=== PATIENT | male | born 1965 ===

== ENCOUNTER 2018-06-14 05:34 | Emergency (ER) | payer BC ==
[2018-06-14] MEDS ORDERED: Albuterol-Ipratrop 3 mg / 0.5 (3 ml) UD INH STA ×3 (06:06→06:25)
--- NOTE | 2018-06-14 06:11 | ED PDOC ---
HPI: SOB/CHF/COPD Time Seen by Provider: 06/14/18 05:52 Chief Complaint (Nursing): Shortness Of Breath Chief Complaint (Provider): Shortness Of Breath History Per: Patient History/Exam Limitations: no limitations Onset/Duration Of Symptoms: Hrs Associated Symptoms: denies: Chest Pain Additional Complaint(s): 53 years old male with chronic bronchitis every winter presents to ER for evaluation of acute worsening of shortness of breath. Patient reports this winter his bronchitis has been worse than it has ever been. He states he treated symptoms with steroids, ventolin and proair. Patient reports waking up tonight gasping breath which never happened before prompting him to come to the ED. He reports improvement since arrival. Patient denies chest pain, nausea, vomiting, leg swelling, calf pain, recent immobility, history of cancer or other lung disease, or known cardiac condition. PMD: None provided Past Medical History Reviewed: Historical Data, Nursing Documentation, Vital Signs Vital Signs: Last Vital Signs Temp 98.3 F 06/14/18 05:52 Pulse 86 06/14/18 05:52 Resp 20 06/14/18 05:52 BP 140/80 06/14/18 05:52 Pulse Ox 98 06/14/18 05:52 - Medical History PMH: Bronchitis - Surgical History Surgical History: No Surg Hx - Family History Family History: States: Unknown Family Hx - Allergies Allergies/Adverse Reactions: Allergies Allergy/AdvReac Type Severity Reaction Status Date / Time No Known Allergies Allergy Verified 06/14/18 05:58 Review of Systems ROS Statement: Except As Marked, All Systems Reviewed And Found Negative Cardiovascular: Negative for: Chest Pain Respiratory: Positive for: Shortness of Breath Gastrointestinal: Negative for: Nausea, Vomiting Musculoskeletal: Negative for: Leg Pain Physical Exam - Reviewed Nursing Documentation Reviewed: Yes Vital Signs Reviewed: Yes - Physical Exam Appears: Positive for: No Acute Distress Head Exam: Positive for: ATRAUMATIC, NORMOCEPHALIC Skin: Positive for: Normal Color, Warm, Dry Eye Exam: Positive for: Normal appearance, EOMI, PERRL ENT: Positive for: Normal ENT Inspection Neck: Positive for: Normal, Painless ROM, Supple Cardiovascular/Chest: Positive for: Regular Rate, Rhythm. Negative for: Murmur Respiratory: Positive for: Normal Breath Sounds, Other (Dry cough triggered by deep inspiration). Negative for: Respiratory Distress Gastrointestinal/Abdominal: Positive for: Normal Exam, Soft. Negative for: Tenderness Back: Positive for: Normal Inspection. Negative for: L CVA Tenderness, R CVA Tenderness Extremity: Positive for: Normal ROM. Negative for: Pedal Edema, Deformity Neurological/Psych: Positive for: Awake, Alert, Oriented (x3) - Laboratory Results Result Diagrams: 06/14/18 06:37 - ECG O2 Sat by Pulse Oximetry: 98 (RA) Pulse Ox Interpretation: Normal Medical Decision Making Medical Decision Making: Time: 602 MDM: workup for acute worsening of shortness of breath with chronic bronchitis --Patient requesting chest CT, explained may be done out patient --Labs --CXR --Duoneb --SOLU-Medrol --D-Dimer --Reassess patient 07 Patient signed out to Dr. Rangel, pending labs and CXR. Scribe Attestation: Documented by Mamie Ritter, acting as a scribe for Soco Mae MD. Provider Scribe Attestation: All medical record entries made by the Scribe were at my direction and p ersonally dictated by me. I have reviewed the chart and agree that the record accurately reflects my personal performance of the history, physical exam, medical decision making, and the department course for this patient. I have also personally directed, reviewed, and agree with the discharge instructions and disposition. Disposition - Clinical Impression Clinical Impression: Shortness of breath - Patient ED Disposition Is Patient to be Admitted: Transfer of Care - Disposition Disposition: Transfer of Care Disposition Time: 07:00 Condition: STABLE Forms: [facility] (Setswana)
[2018-06-14 06:48] LABS: BASO # 0.1 K/uL (0.0-0.2); BASO % 0.7 % (0.0-2.0); EOS # 0.2 K/uL (0.0-0.7); EOS % 1.6 % (0.0-4.0); HEMOGLOBIN 14.3 g/dL (12.0-18.0); MEAN CELL VOLUME 88.5 fl (80.0-94.0); MEAN CORPUSCULAR HEMOGLOBIN 29.4 pg (27.0-31.0); MEAN CORPUSCULAR HGB CONC 33.2 g/dL (33.0-37.0); MONO # 0.8 K/uL (0.0-0.8); MONO % 6.2 % (0.0-10.0); NEUT # 8.9 K/uL (1.8-7.0); NEUT % 68.5 % (50.0-75.0); RBC 4.87 Mil/uL (4.40-5.90); RED CELL DISTRIBUTION WIDTH 14.5 % (11.5-14.5); WHITE BLOOD COUNT 12.9 K/uL (4.8-10.8)
[2018-06-14] MEDS ORDERED: Albuterol-Ipratrop 3 mg / 0.5 (3 ml) UD ONE ×2 (06:52→07:08)
[2018-06-14 06:54] LABS: BLOOD UREA NITROGEN 21 mg/dl (9-20); CALCIUM 8.9 mg/dL (8.4-10.2); GFR NON-AFRICAN AMERICAN > 60
[2018-06-14 07:06] LABS: B-TYPE NATRIURETIC PEPTIDE 2700 pg/ml (0-900)
--- NOTE | 2018-06-14 07:06 | ED PDOC ---
- Laboratory Results Result Diagrams: 06/14/18 06:37 06/14/18 06:37 Lab Results: D-Dimer, Quantitative < 200 ng/mlDDU (0-230) 06/14/18 06:37 - ECG O2 Sat by Pulse Oximetry: 98 (RA) Medical Decision Making Medical Decision Making: Time: 0700 --Patient is endorsed to provider by Dr. Mae, pending lab and CXR results. Time: 734 Reeval SOB improved. Denies chest pain. Lungs, no rales, no resp distress. Pro- BNP elevated at 2700. No PMH CHF with no clinical or xray evidence of CHF. Will give 40 mg Lasix and reeval. Pt bdiuresed 700 ml after lasix. Feels better. Will dc home with outpt follow up in [facility] Scribe Attestation: Documented by Eliana Maharaj, acting as a scribe for Riky Rangel MD. Provider Scribe Attestation: All medical record entries made by the Scribe were at my direction and personally dictated by me. I have reviewed the chart and agree that the record accurately reflects my personal performance of the history, physical exam, medical decision making, and the department course for this patient. I have also personally directed, reviewed, and agree with the discharge instructions and disposition. Disposition Counseled Patient/Family Regarding: Studies Performed, Diagnosis, Need For Followup, Rx Given - Clinical Impression Clinical Impression: Shortness of breath, Bronchitis - POA Present On Arrival: None - Disposition Referrals: [facility] [Outside] Disposition: Routine/Home Disposition Time: 09:16 Condition: STABLE Prescriptions: Albuterol HFA [Ventolin HFA 90 mcg/actuation (8 g)] 2 puff IH Q4H #1 puff Methylprednisolone [Medrol Dose Pack (21 tabs)] 4 mg PO DAILY #21 tab Instructions: Chronic Bronchitis, Shortness of Breath (Dyspnea) (DC) Forms: [employer] (Kazakh)
[2018-06-14 07:42] VITALS: RESP 18
[2018-06-14 07:43] VITALS: TEMP 98
--- NOTE | 2018-06-14 09:40 | RAD ---
Date of service: 06/14/2018 HISTORY: cough COMPARISON: No prior. TECHNIQUE: Chest PA and lateral views FINDINGS: LUNGS: Suspect minimal bibasilar atelectasis and or scarring PLEURA: No significant pleural effusion identified. No pneumothorax apparent. CARDIOVASCULAR: No aortic atherosclerotic calcification present. Normal cardiac size. No pulmonary vascular congestion. OSSEOUS STRUCTURES: Minor chronic anterior wedge deformities of few mid thoracic segments VISUALIZED UPPER ABDOMEN: Normal. OTHER FINDINGS: None. IMPRESSION: Minimal bibasilar atelectasis and/or scarring
[2018-06-14 10:23] VITALS: BP 143/79; PULSE 73; O2SAT 96
== END 2018-06-14 10:24 | disposition home or self-care (01) ==
LOC: H.ER 05:34
DX: R06.02 Shortness of breath (principal); J40 Bronchitis, not specified as acute or chronic
CPT/HCPCS: 71046; 80048; 83880; 84484; 85025; 85378; 94640; 96374; 96375; 99284; J1940; J2930

== ENCOUNTER 2018-06-19 05:56 | Inpatient (IN) | payer BC ==
[2018-06-19 06:05] VITALS: BMI 34.8
[2018-06-19] MEDS ORDERED: Albuterol-Ipratrop 3 mg / 0.5 (3 ml) UD INH STA (06:23)
[2018-06-19] MEDS ORDERED: Albuterol-Ipratrop 3 mg / 0.5 (3 ml) UD ONE (06:29)
--- NOTE | 2018-06-19 06:29 | ED PDOC ---
HPI: SOB/CHF/COPD Time Seen by Provider: 06/19/18 06:05 Chief Complaint (Nursing): Shortness Of Breath Chief Complaint (Provider): Shortness Of Breath History Per: Patient History/Exam Limitations: no limitations Onset/Duration Of Symptoms: Days (x 5) Current Symptoms Are (Timing): Still Present Current Respiratory Medications: Albuterol (Ventolin inhaler), Other (Solum edrol) Associated Symptoms: denies: Chest Pain Additional Complaint(s): 53 year old male with a history of seasonal bronchitis presents to the ED for evaluation of shortness of breath and a dry cough for 5 days. Patient states his seasonal bronchitis generally resolved. However, on Sunday he developed severe shortness of breath, prompting him to visit the ED. During that visit, lab results revealed an elevated Pro-BNP. He was given a dose of IV Lasix and discharged home. Patient reports he then felt better until last night when symptoms returned. Denies chest pain, nausea, vomiting, fever and lower extremity swelling or edema. PMD: none provided Past Medical History Reviewed: Historical Data, Nursing Documentation, Vital Signs Vital Signs: Last Vital Signs Temp 98.0 F 06/19/18 06:04 Pulse 90 06/19/18 06:04 Resp 23 06/19/18 06:21 BP 123/85 06/19/18 06:04 Pulse Ox 97 06/19/18 06:21 - Medical History PMH: Bronchitis - Surgical History Surgical History: Cholecystectomy - Family History Family History: States: Unknown Family Hx - Social History Current smoker - smoking cessation education provided: No Alcohol: None Drugs: Denies - Home Medications Home Medications: Ambulatory Orders Medication Instructions Recorded Albuterol HFA [Ventolin HFA 90 2 puff IH Q4H #1 puff 06/14/18 mcg/actuation (8 g)] Methylprednisolone [Medrol Dose 4 mg PO DAILY #21 tab 06/14/18 Pack (21 tabs)] - Allergies Allergies/Adverse Reactions: Allergies Allergy/AdvReac Type Severity Reaction Status Date / Time No Known Allergies Allergy Verified 06/19/18 06:18 Review of Systems ROS Statement: Except As Marked, All Systems Reviewed And Found Negative Constitutional: Negative for: Fever, Chills Cardiovascular: Negative for: Chest Pain Respiratory: Positive for: Cough, Shortness of Breath Gastrointestinal: Negative for: Nausea, Vomiting Musculoskeletal: Negative for: Leg Pain Physical Exam - Reviewed Nursing Documentation Reviewed: Yes Vital Signs Reviewed: Yes - Physical Exam Appears: Positive for: No Acute Distress Head Exam: Positive for: ATRAUMATIC, NORMAL INSPECTION, NORMOCEPHALIC Skin: Positive for: Normal Color, Warm, Dry Eye Exam: Positive for: EOMI, Normal appearance, PERRL Neck: Positive for: Normal, Painless ROM, Supple Cardiovascular/Chest: Positive for: Regular Rate, Rhythm. Negative for: Murmur Respiratory: Positive for: Decreased Breath Sounds (Decreased air entry). Negative for: Respiratory Distress Gastrointestinal/Abdominal: Positive for: Normal Exam, Soft. Negative for: Tenderness Back: Positive for: Normal Inspection. Negative for: L CVA Tenderness, R CVA Tenderness Extremity: Positive for: Normal ROM (x 4). Negative for: Deformity, Swelling Neurological/Psych: Positive for: Awake, Alert, Normal Tone, Oriented (x 3). Negative for: Motor/Sensory Deficits - ECG O2 Sat by Pulse Oximetry: 97 (RA) Pulse Ox Interpretation: Normal Medical Decision Making Medical Decision Makin:22 Impression: persistent dyspnea Initial Plan: --CT Angio Chest --EKG --BNP --CMP --CBC --PTT --PT --Duoneb 9 ml INH --Peak flow pre/post --Solu-medrol 125 mg IVP 07:00 Patient will be endorsed to Dr. Ortiz pending full ER workup, re-evaluation and final disposition. Patient is with stable vitals and in no distress at time of physical handoff. Scribe Attestation: Documented by Lesley Swain, acting as a scribe Turner Salgado MD Provider Scribe Attestation: All medical record entries made by the Scribe were at my direction and personally dictated by me. I have reviewed the chart and agree that the record accurately reflects my personal performance of the history, physical exam, medical decision making, and the department course for this patient. I have also personally directed, reviewed, and agree with the discharge instructions and disposition Disposition - Clinical Impression Clinical Impression: Shortness of breath - Patient ED Disposition Is Patient to be Admitted: Transfer of Care - Disposition Disposition: Transfer of Care Disposition Time: 07:00 Condition: FAIR Forms: [employer] (Honduran) Patient Signed Over To: Bette Ortiz
[2018-06-19 07:01] LABS: BASO # 0.1 K/uL (0.0-0.2); BASO % 0.7 % (0.0-2.0); EOS # 0.1 K/uL (0.0-0.7); EOS % 0.5 % (0.0-4.0); HEMOGLOBIN 14.1 g/dL (12.0-18.0); LYMPH # 1.8 K/uL (1.0-4.3); MEAN CELL VOLUME 87.5 fl (80.0-94.0); MEAN CORPUSCULAR HEMOGLOBIN 29.4 pg (27.0-31.0); MEAN CORPUSCULAR HGB CONC 33.6 g/dL (33.0-37.0); MEAN PLATELET VOLUME 8.1 fl (7.2-11.7); MONO # 0.6 K/uL (0.0-0.8); MONO % 4.5 % (0.0-10.0); NEUT # 10.3 K/uL (1.8-7.0); NEUT % 80.3 % (50.0-75.0); RBC 4.79 Mil/uL (4.40-5.90); RED CELL DISTRIBUTION WIDTH 14.6 % (11.5-14.5); WHITE BLOOD COUNT 12.8 K/uL (4.8-10.8)
[2018-06-19 07:05] LABS: INR 1.1; PROTHROMBIN TIME 12.4 Seconds (9.8-13.1)
[2018-06-19 07:08] LABS: PARTIAL THROMBOPLASTIN TIME 33.1 Seconds (25.6-37.1)
--- NOTE | 2018-06-19 07:11 | ED PDOC ---
- Laboratory Results Result Diagrams: 06/19/18 06:38 06/19/18 06:38 Lab Results: PT 12.4 Seconds (9.8-13.1) 06/19/18 06:38 INR 1.1 06/19/18 06:38 APTT 33.1 Seconds (25.6-37.1) 06/19/18 06:38 - ECG O2 Sat by Pulse Oximetry: 97 (RA) Pulse Ox Interpretation: Normal Medical Decision Making Medical Decision Making: Time: 7:00 Patient with a history of seasonal bronchitis was signed out to me by Dr. Salgado pending Chest CT, labs, and final ER disposition. Upon bedside evaluation patient reports mild improvement in symptoms s/p treatment. Patient has a normal physical exam upon evaluation and is speaking in full sentences with clear lungs. He is stable in the ED at this time. 11:[address] Jimenez in regards to admission of patient to Telemetry for new onset CHF. Scribe Attestation: Documented by Bebe Mcdaniel, acting as a scribe for Bette Ortiz MD. Provider Scribe Attestation: All medical record entries made by the Scribe were at my direction and personally dictated by me. I have reviewed the chart and agree that the record accurately reflects my personal performance of the history, physical exam, medical decision making, and the department course for this patient. I have also personally directed, reviewed, and agree with the discharge instructions and disposition. Disposition - Clinical Impression Clinical Impression: New onset of congestive heart failure - POA Present On Arrival: None - Disposition Disposition: Admitted as In-Patient Disposition Time: 11:35 Condition: STABLE
[2018-06-19 07:14] LABS: ALB/GLOB RATIO 1.4 (1.0-2.1); ALBUMIN 4.2 g/dL (3.5-5.0); ALT/SGPT 73 U/L (21-72); AST/SGOT 49 U/L (17-59); BLOOD UREA NITROGEN 17 mg/dl (9-20); CALCIUM 8.5 mg/dL (8.4-10.2); GFR NON-AFRICAN AMERICAN > 60
[2018-06-19 07:23] LABS: B-TYPE NATRIURETIC PEPTIDE 3030 pg/ml (0-900)
[2018-06-19] MEDS ORDERED: Iodixanol 320 MG/ML 100 ML BOTTLE IV ONE (07:49)
[2018-06-19] MEDS ORDERED: Sodium Chloride 0.9% 50 ML IV ONE (07:49)
--- NOTE | 2018-06-19 08:58 | CT ---
Date of service: 06/19/2018 PROCEDURE: CT Chest with contrast (Pulmonary Angiogram) HISTORY: chest pain r/o PE COMPARISON: None available. TECHNIQUE: Axial computed tomography images were obtained of the chest in the pulmonary arterial phase of enhancement. Coronal and sagittal reformatted images were created and reviewed. Intravenous contrast dose: 99 mL of Visipaque 320 Radiation dose: Total exam DLP = 0.0 mGy-cm. This CT exam was performed using one or more of the following dose reduction techniques: Automated exposure control, adjustment of the mA and/or kV according to patient size, and/or use of iterative reconstruction technique. FINDINGS: PULMONARY ARTERIES: Unremarkable. No pulmonary embolism. AORTA: No acute findings. No thoracic aortic aneurysm. No aortic atherosclerotic calcification or mural plaque present. LUNGS: At the left lung base there is a macro lobulated homogeneous hypodense area slightly less dense than the ipsilateral left thoracic muscle bundles. This appears intimate with the left fissure here Hounsfield units are quite variable in different parts albeit homogeneous appearing. Hounsfield units are negative to 50. Possibly of some fissural complex fluid or other soft tissue fissural perifissural related pathology here is a consideration.. PLEURAL SPACES: No pneumothorax. Left lung base fissural and or perifissural potential related pathology here. HEART: Left atrium appears larger than typically seen compared to the right. Possible mild concomitant cardiomegaly.. No significant pericardial effusion. LYMPH NODES: No lymphadenopathy. BONES, CHEST WALL: Unremarkable. No fracture or destructive lesion OTHER FINDINGS: Unremarkable. IMPRESSION: No pulmonary embolus. Left atrium appears larger than typically seen compared to the right atrium. Consider echocardiography. Mild cardiomegaly no pericardial effusion. Left fissural/perifissural lobulated homogeneous density of variable Hounsfield units complex fluid and/or soft tissue contents are believed most likely. Follow-up recommended.
[2018-06-19 11:32] LABS: URINE BILIRUBIN NEGATIVE (NEGATIVE); URINE BLOOD NEGATIVE (NEGATIVE); URINE CLARITY CLEAR (Clear); URINE COLOR COLORLESS (YELLOW); URINE GLUCOSE (UA) NEG (NEGATIVE); URINE LEUKOCYTE ESTERASE NEG Leu/uL (Negative); URINE PROTEIN NEGATIVE (NEGATIVE); URINE UROBILINOGEN 0.2-1.0 mg/dL (0.2-1.0)
--- NOTE | 2018-06-19 14:26 | RAD ---
Date of service: 06/19/2018 PROCEDURE: CHEST RADIOGRAPH, 1 VIEW HISTORY: CHf COMPARISON: 06/14/2018 FINDINGS: LUNGS: Lung volumes probably lower limits of normal on this apical lordotic projection. No consolidation appreciated. PLEURA: No pneumothorax or pleural fluid seen. CARDIOVASCULAR: No aortic atherosclerotic calcification present. Minimal cardiomegaly suspect. Mild pulmonary venous congestion OSSEOUS STRUCTURES: No significant abnormalities. VISUALIZED UPPER ABDOMEN: Normal. OTHER FINDINGS: None. IMPRESSION: Minimal cardiomegaly and mild pulmonary venous congestion. Pulmonary venous congestion appears increased since prior exam
--- NOTE | 2018-06-19 19:44 | CARD ---
APPROVED REPORT Date of service: 06/19/2018 EKG Measurement Heart [id number] <Conclusion> Sinus rhythm with frequent and consecutive premature ventricular complexes Left ventricular hypertrophy with repolarization abnormality Abnormal ECG
--- NOTE | 2018-06-20 01:46 | HP ---
HISTORY OF PRESENT ILLNESS: This is a 53-year-old white male with a history of hypertension, presented to the emergency room with symptoms of shortness of breath and cough that woke him up for the second time during this week as he was sleeping. The patient presented to the emergency room three days prior to this admission, and he was treated and discharged home. The patient presented for the second time during this week with similar presentation. The patient was worked up in the emergency room and he was found to have elevated ProBNP to 3030. The patient was also found to have some leukocytosis of 12.8, but he was taking Medrol Dosepak at home. REVIEW OF SYSTEMS: The patient denied to have any chest pain, but he said that he had tightness in the chest as he woke up, denied having any fever. The patient denied smoking or any significant family history for ischemic heart disease. Other review of systems is negative. ALLERGIES: NO KNOWN ALLERGY. MEDICATIONS: Blood pressure medication that he cannot recall its name. PAST MEDICAL HISTORY: As above. SOCIAL HISTORY: No history of smoking, EtOH, or substance abuse. FAMILY HISTORY: Noncontributory. PHYSICAL EXAMINATION: GENERAL: The patient is in bed now, not in any cardiopulmonary distress after he was given Lasix in the emergency room. VITAL SIGNS: Blood pressure 132/78, temperature 98.4, respiratory rate 18, and pulse 87. HEENT: Pupils are equal and reactive to light. Normal-appearing mucosa of the conjunctivae, oropharynx and nasal membrane mucosa. NECK: Supple. No JVD. No carotid bruit. No lymph node. No thyromegaly. CHEST AND LUNGS: Bilateral symmetrical expansion. Good air exchange. No rales. No rhonchi. CARDIOVASCULAR SYSTEM: PMI not localized. S1, S2, no additional sounds. ABDOMEN: Normoactive bowel sounds. No tenderness. No organomegaly. No masses. EXTREMITIES: No cyanosis. No clubbing. No edema. CENTRAL NERVOUS SYSTEM: Alert, awake, oriented x3. No neurological deficit could be appreciated. DIAGNOSTIC DATA: CAT scan of the chest showed that left atrium appears larger than typically seen compared to the right atrium. ASSESSMENT: 1. New-onset congestive heart failure. 2. Hypertension. PLAN: Continue diuretics. Cardiology consult. Echocardiogram. Cardiac enzymes every 8 hours x3. Follow Cardiology recommendations. [facility] MD [facility] # [id number]
[2018-06-20 05:11] VITALS: RESP 18
[2018-06-20 09:14] VITALS: TEMP 97.5; O2SAT 95
--- NOTE | 2018-06-20 09:20 | CON ---
DATE OF CONSULTATION: 06/19/2018 REASON FOR CONSULTATION: Shortness of breath. HISTORY OF PRESENT ILLNESS: The patient is a 53-year-old male who has no known prior cardiac history. He has history of seasonal bronchitis usually in wintertime, for which he takes an inhaler and he receives a short steroid course as well as [id number]. The patient used to be followed by a primary physician, Dr. Garcia, that he has not seen for a while. The patient presents because of worsening of his shortness of breath, productive cough as well as leg swelling. The patient denies any fever or chills. The patient was evaluated recently 5 days ago in the emergency room of [facility] for shortness of breath and underwent chest x-ray, which was reported as minimal bibasilar atelectasis and/or scarring. SOCIAL HISTORY: Nonsmoker. The patient is currently unemployed, but he used to work in the past with a [employer]. MEDICATIONS: The patient is on aspirin 81 mg once daily, Lasix 20 mg intravenously daily. He did receive albuterol inhaler, Solu-Medrol, and intravenous Lasix in the emergency room. REVIEW OF SYSTEMS: No fever or chills. No dizziness or syncope. No retrosternal chest pain. PHYSICAL EXAMINATION: GENERAL: The patient is a middle-aged male who does not appear to be in acute distress. VITAL SIGNS: Blood pressure 124/66, heart rate 60, temperature 98, and respirations 20. HEENT: Head normocephalic. CHEST: Diminished breath sounds over the bases. HEART: S1 and S2 regular. ABDOMEN: Soft. EXTREMITIES: 1+ pitting edema. LABORATORY DATA: Today's hemoglobin and hematocrit are 14.1 and 41.9, white count 12.8, platelet count 367,000. SMA-7: Sodium 137, potassium 3.9, chloride 107, CO2 of 21, glucose 129, BUN 17, and creatinine 0.7. ProBNP is 3030. Troponin first set was negative. PT, INR, and PTT are within normal limits. A portable chest x-ray was performed on the telemetry unit, which revealed minimal cardiomegaly and mild vascular congestion. Pulmonary venous congestion appears increased compared to the previous exam, which was [address] angio with PE protocol, no pulmonary embolus, left atrium appears larger than typically seen compared to the right atrium. Consider echocardiographic study and mild cardiomegaly. No pericardial effusion. Left fissure/ homogeneous density of variable Hounsfield unit complex. Fluid and/or soft tissue contents are believed most likely. EKG revealed sinus rhythm with frequent PVCs, LVH with repolarization changes; however, lateral ischemia cannot be completely excluded. ASSESSMENT: 1. Consider new onset congestive heart failure. 2. History of seasonal bronchitis. 3. Hypertension. 4. Rule out right-sided heart failure secondary to pulmonary hypertension caused by chronic heart disease. RECOMMENDATIONS: Continue aspirin 81 mg once a day, Lasix 20 mg intravenously once a day. I did request an echocardiographic study to be performed today. Jesus Manuel Nair MD
[2018-06-20 14:06] VITALS: BP 119/82; PULSE 84
--- NOTE | 2018-06-20 18:26 | PN ---
DATE: 06/20/2018 SUBJECTIVE: The patient's shortness of breath has improved. He denies any chest pain. Cough also has improved. PHYSICAL EXAMINATION VITAL SIGNS: Blood pressure 106/76, heart rate 82, temperature 97.5, and respirations 18. HEENT: Normocephalic. CHEST: Bibasilar rhonchi. HEART: S1 and S2, regular. EXTREMITIES: Trace leg edema. LABORATORY DATA: I did review the echocardiographic study, which revealed [id number] depressed ejection fraction with septal hypokinesis. The left atrium was significantly dilated and the left ventricle was borderline dilated. ASSESSMENT: 1. Consider ischemic cardiomyopathy. 2. History of chronic bronchitis. 3. Systemic hypertension. RECOMMENDATIONS: Continue aspirin 81 mg once a day and Lasix 20 mg intravenously once a day. I will start Coreg 3.125 mg once a day, Vasotec 2.5 mg once a day, and Aldactone 25 mg once a day. Cardiac catheterization was strongly recommended; however, the patient requested to delay it for next week, after he celebrates his son's birthday and specifically after Sunday when his son leaves. The patient also requested to have his cardiac catheterization performed by student development dean from the . The issue will be discussed with Dr. Jimenez to assign another student development dean who uses ideal approach for cardiac catheterization. Jesus Manuel Nair MD
--- NOTE | 2018-06-20 20:03 | CARD ---
APPROVED REPORT Date of service: 06/20/2018 EXAM: Two-dimensional and M-mode echocardiogram with Doppler and color Doppler. Other Information Quality : GoodRhythm : PVC's INDICATION Congestive Heart Failure 2D DIMENSIONS IVSd1.29 (0.7-1.1cm)LVDd5.87 (3.9-5.9cm) LVOT Diameter2.33 (1.8-2.4cm)PWd1.09 (0.7-1.1cm) IVSs1.11 (0.8-1.2cm)LVDs5.89 (2.5-4.0cm) FS (%) 0.3 %PWs0.99 (0.8-1.2cm) M-Mode DIMENSIONS Left Atrium (MM)6.76 (2.5-4.0cm)IVSd1.04 (0.7-1.1cm) Aortic Root3.13 (2.2-3.7cm)LVDd7.95 (4.0-5.6cm) Aortic Cusp Exc.2.32 (1.5-2.0cm)PWd1.04 (0.7-1.1cm) IVSs0.89 cmFS (%) 13 % LVDs6.91 (2.0-3.8cm)PWs1.27 cm Aortic Valve AoV Peak Ftyrunfe952.4cm/sAoV VTI22.2cmAO Peak GR.7mmHg LVOT Peak Fjagvpuz06.6cm/sLVOT VTI14.75cmAO Mean GR.5mmHg [place] (VMAX)1.28cj8ZSB (VTI)1.19cm2 Mitral Valve E/A ratio0.0 TDI E/Lateral E'0.0E/Medial E'0.0 LEFT VENTRICLE The Left Ventricle is moderately dilated. There is normal left ventricular wall thickness. The systolic function is severely impaired. The estimated ejection fraction is 25-30% There is severe global hypokinesis. The left ventricular diastolic function cannot be assessed due to underlying rhythm. No left ventricle thrombus noted on this study. There is no ventricular septal defect visualized. There is no left ventricular aneurysm. There is no mass noted in the left ventricle. RIGHT VENTRICLE The right ventricle is normal size. There is normal right ventricular wall thickness. The right ventricular systolic function is normal. ATRIA The left atrium is severely dilated. The right atrium size is normal. The interatrial septum is intact with no evidence for an atrial septal defect. AORTIC VALVE The aortic valve is normal in structure. No aortic regurgitation is present. There is no aortic valvular stenosis. There is no aortic valvular vegetation. MITRAL VALVE The mitral valve is normal in structure. There is no evidence of mitral valve prolapse. There is no mitral valve stenosis. There is moderate mitral valve regurgitation noted. TRICUSPID VALVE The tricuspid valve is normal in structure. There is mild tricuspid valve regurgitation noted. There is no tricuspid valve prolapse or vegetation. There is no tricuspid valve stenosis. PULMONIC VALVE The pulmonary valve is normal in structure. There is no pulmonic valvular regurgitation. There is no pulmonic valvular stenosis. GREAT VESSELS The aortic root is normal in size. The ascending aorta is normal in size. The pulmonary artery is normal. The IVC is normal in size and collapses >50% with inspiration. PERICARDIAL EFFUSION There is no pericardial effusion. There is no pleural effusion. <Conclusion> The Left Ventricle is moderately dilated. The systolic function is severely impaired. The estimated ejection fraction is 25-30%. There is severe global hypokinesis. The left ventricular diastolic function cannot be assessed due to underlying rhythm. The left atrium is severely dilated. There is moderate mitral valve regurgitation noted. There is mild tricuspid valve regurgitation noted.
--- NOTE | 2018-06-22 11:41 | PQF ---
PROVIDER RESPONSE TEXT: Acute systolic HF , likely ischemic in origin. REVIEWER QUERY TEXT: CHF Acuity and Type Physician?s Documentation Request This Form is Not a Permanent Document in the Medical Record Pt Name: FLETCHER GAFFNEY MR #: [id number] Payor: [facility] Unit/Bed: [id number].TEL-H417-1 Adm Date: 06/19/2018 11:35:00 AM Reviewer: Mercedes Gee Ext. Query Date: 06/21/2018 2:10:42 PM CHF Acuity and Type [id number] By submitting this query, we are merely seeking further clarification of documentation to accurately reflect all conditions that you are monitoring, evaluating, treating or that extend the hospitalizati on or utilize additional resources of care. Please utilize your independent clinical judgment when ad dressing the question(s) below. Dear Doctor Ezekiel Jimenez, The patient?s Clinical Indicators include: DOCUMENTATION OF NEW ONSET OF CHF. PLEASE CLARIFY THE TYPE OF CHF IF KNOWN. Congestive Heart Failure is documented in the Medical Record. Please document the type and acuity (in cludes probable or suspected) Such as: Type: -- Systolic -- Diastolic -- Combined -- Other, please specify Acuity: -- Acute -- Chronic -- Acute on chronic -- Other, please specify Also please document the underlying cause of the CHF (includes probable or suspected) PLEASE DOCUMENT ANY ADDITIONAL DIAGNOSES AND/OR SPECIFICITY IN THE PROGRESS NOTES AND/OR DISCHARGE CUI MMARY. Clinically unable to determine/unknown Disagree with the above request Need to discuss Query created by: Mercedes Gee on 06/21/2018 2:10 PM Electronically signed by: Ezekiel Jimenez MD 06/22/2018 11:38 AM
== END 2018-06-20 17:25 | disposition home or self-care (01) | DRG 291 ==
LOC: H.ER 05:56 → H.ERHOLD 11:35 → H.TEL 13:14
PROVIDERS: ADMIT Internal Medicine; ATTEND Internal Medicine
DX: I11.0 Hypertensive heart disease with heart failure (principal); I50.21 Acute systolic (congestive) heart failure; D72.829 Elevated white blood cell count, unspecified; Z53.29 Procedure and treatment not carried out because of patient's decision for other reasons; Z79.82 Long term (current) use of aspirin

== ENCOUNTER 2018-07-03 01:24 | Inpatient (IN) | payer BC ==
[2018-07-03] MEDS ORDERED: Albuterol-Ipratrop 3 mg / 0.5 (3 ml) UD ONE (03:33)
[2018-07-03 03:58] LABS: BASO # 0.1 K/uL (0.0-0.2); EOS # 0.3 K/uL (0.0-0.7); EOS % 3.2 % (0.0-4.0); HEMOGLOBIN 12.5 g/dL (12.0-18.0); LYMPH # 2.3 K/uL (1.0-4.3); LYMPH % 23.3 % (20.0-40.0); MEAN CELL VOLUME 86.8 fl (80.0-94.0); MEAN CORPUSCULAR HEMOGLOBIN 29.6 pg (27.0-31.0); MEAN CORPUSCULAR HGB CONC 34.1 g/dL (33.0-37.0); MEAN PLATELET VOLUME 8.1 fl (7.2-11.7); MONO # 0.6 K/uL (0.0-0.8); MONO % 6.4 % (0.0-10.0); NEUT # 6.5 K/uL (1.8-7.0); NEUT % 66.1 % (50.0-75.0); NRBC % 0.1 % (0.0-0.0); RBC 4.24 Mil/uL (4.40-5.90); RED CELL DISTRIBUTION WIDTH 14.2 % (11.5-14.5); WHITE BLOOD COUNT 9.8 K/uL (4.8-10.8)
[2018-07-03 04:18] LABS: B-TYPE NATRIURETIC PEPTIDE 4260 pg/ml (0-900)
[2018-07-03 04:22] LABS: ALB/GLOB RATIO 1.3 (1.0-2.1); ALT/SGPT 47 U/L (21-72); AST/SGOT 39 U/L (17-59); BLOOD UREA NITROGEN 13 mg/dl (9-20); CALCIUM 8.4 mg/dL (8.4-10.2); GFR NON-AFRICAN AMERICAN > 60
[2018-07-03 05:24] VITALS: BMI 34.9
--- NOTE | 2018-07-03 05:55 | ED PDOC ---
HPI: CCC, URI, Sore Throat Time Seen by Provider: 07/03/18 03:35 Chief Complaint (Provider): Cough/URI History Per: Patient History/Exam Limitations: no limitations Onset/Duration Of Symptoms: Days Current Symptoms Are (Timing): Still Present Additional Complaint(s): 53 y/o male with recently diagnosed CHF and COPD presents to the ED for evaluation of a cough. Previous records reviewed, patient has had two ER visits and one admission over the last two weeks. At this time, patient is requesting to see a claims investigator for evaluation of the persistent cough. Patient believes he was discharged prematurely and was not seen by a claims investigator, only a cloth carrier. Patient denies fever, nausea and vomiting. Patient notes of using his Brio inhaler with mild relief. He presently states his cough has worsened and does describe PND and orthopnea. PMD: no provider Past Medical History Reviewed: Historical Data, Nursing Documentation, Vital Signs - Medical History PMH: Bronchitis Denies: HIV - Surgical History Surgical History: Cholecystectomy - Family History Family History: States: Unknown Family Hx - Home Medications Home Medications: Ambulatory Orders Medication Instructions Recorded Aspirin [Ecotrin] 81 mg PO DAILY #30 tabec 06/20/18 Carvedilol [Coreg] 3.125 mg PO Q12 #60 tab 06/20/18 Furosemide [Lasix] 20 mg PO DAILY #30 tablet 06/20/18 Lisinopril [Zestril] 5 mg PO DAILY #30 tab 06/20/18 Albuterol Sulfate [Ventolin Hfa] 1 puff IH DAILY 07/03/18 Fluticasone/Vilanterol [Breo 1 each IH DAILY 07/03/18 Ellipta 100-25 Mcg INH] - Allergies Allergies/Adverse Reactions: Allergies Allergy/AdvReac Type Severity Reaction Status Date / Time No Known Allergies Allergy Verified 06/19/18 06:18 Review of Systems ROS Statement: Except As Marked, All Systems Reviewed And Found Negative Respiratory: Positive for: Cough Physical Exam - Reviewed Nursing Documentation Reviewed: Yes Vital Signs Reviewed: Yes - Physical Exam Appears: Positive for: No Acute Distress Head Exam: Positive for: ATRAUMATIC, NORMOCEPHALIC Skin: Positive for: Normal Color, Warm, Dry Eye Exam: Positive for: Normal appearance, EOMI, PERRL ENT: Positive for: Normal ENT Inspection Neck: Positive for: Normal, Painless ROM, Supple Cardiovascular/Chest: Positive for: Regular Rate, Rhythm. Negative for: Murmur Respiratory: Positive for: Normal Breath Sounds, Other (trace rales at bases B/L). Negative for: Respiratory Distress Gastrointestinal/Abdominal: Positive for: Normal Exam, Soft. Negative for: Tenderness Back: Positive for: Normal Inspection. Negative for: L CVA Tenderness, R CVA Tenderness, Vertebral Tenderness Extremity: Positive for: Normal ROM. Negative for: Pedal Edema, Deformity Neurological/Psych: Positive for: Awake, Alert, Oriented (x3). Negative for: Motor/Sensory Deficits - Laboratory Results Result Diagrams: 07/03/18 03:20 07/03/18 03:20 Lab Results: Troponin I 0.0520 ng/mL (0.00-0.120) 07/03/18 03:20 NT-Pro-B Natriuret Pep 4260 pg/ml (0-900) H 07/03/18 03:20 Total Bilirubin 0.7 mg/dl (0.2-1.3) 07/03/18 03:20 AST 39 U/L (17-59) 07/03/18 03:20 ALT 47 U/L (21-72) 07/03/18 03:20 Alkaline Phosphatase 58 U/L (38-126) 07/03/18 03:20 Total Protein 7.0 G/DL (6.3-8.2) 07/03/18 03:20 Albumin 4.0 g/dL (3.5-5.0) 07/03/18 03:20 Globulin 3.0 gm/dL (2.2-3.9) 07/03/18 03:20 Albumin/Globulin Ratio 1.3 (1.0-2.1) 07/03/18 03:20 - Critical Care Total Time (In Min): 30 Medical Decision Making Medical Decision Making: Time: 353 Impression: 53 y/o male presenting with a cough Plan: -- B-Type Natiruretic Peptide -- CMP -- Troponin I -- CBC with Differentials Time: 523 Plan: -- CXR Portable Time: 606 Plan: -- Furosemide 40 mg IV -- Nitro-Bid 2% Oint 1 ea TOP Time: 613 -- Labs reviewed and is significant for markedly elevated Pro BNP. Provider suspects patient may be noncompliant with Lasix although he says that he does take medications as prescribed. Patient will be placed on observation status for CHF as discussed with Dr. Jimenez. Scribe Attestation: Documented by Nish Anand, acting as a scribe for David Salgado MD. Provider Scribe Attestation: All medical record entries made by the Scribe were at my direction and personally dictated by me. I have reviewed the chart and agree that the record accurately reflects my personal performance of the history, physical exam, medical decision making, and the department course for this patient. I have also personally directed, reviewed, and agree with the discharge instructions and disposition. Disposition - Clinical Impression Clinical Impression: CHF (congestive heart failure) - Patient ED Disposition Is Patient to be Admitted: Yes - Disposition Disposition Time: 06:17 Condition: FAIR - Pt Status Changed To: Hospital Disposition Of: Observation
[2018-07-03] MEDS ORDERED: Nitroglycerin 2% Ointment Foilpak UD TOP STA (06:07)
[2018-07-03] MEDS ORDERED: Nitroglycerin 2% Ointment Foilpak UD TOP ONE (06:28)
--- NOTE | 2018-07-03 08:12 | RAD ---
Date of service: 07/03/2018 HISTORY: chest pain COMPARISON: 05/19/2018 TECHNIQUE: 1 view obtained. FINDINGS: LUNGS: Interval trace discoid atelectasis PLEURA: Interval small left pleural effusion with or without left interval left inferolateral mild pleural thickening.. No pneumothorax appreciated. CARDIOVASCULAR: There is presence of aortic atherosclerotic calcification on x-ray. Cardiomegaly Mild pulmonary venous congestion grossly similar OSSEOUS STRUCTURES: Thoraco lumbar spondylosis. VISUALIZED UPPER ABDOMEN: Normal. OTHER FINDINGS: None. IMPRESSION: Interval left basal discoid atelectasis. Interval small left pleural effusion with possible mild interval left inferolateral pleural thickening/reaction. Mild cardiomegaly and mild venous congestion-similar
--- NOTE | 2018-07-03 15:02 | CP.PCM.CON ---
History of Present Illness - History of Present Illness History of Present Illness: Consultation for evaluation of chest pain / SOB / recurrent CHF exacerbation HPI: 53-year-old male with past medical history nonsignificant who presented with complaint of recurrent heart failure exacerbation patient apparently was here on June 19 at which time he had a CHF exacerbation echocardiogram done showed ejection fraction was 25 to 30% with apical hypokinesis he was optimized on medications subsequently discharged home he continued to have worsening chest pain shortness of breath and was readmitted with classic CHF exacerbation bilateral pulmonary congestion was also having ongoing episode of chest pain and therefore we will consider for further evaluation of etiology of his new onset Review of Systems - Review of Systems Systems not reviewed;Unavailable: Acuity of Condition - Constitutional Constitutional: As Per HPI - EENT Eyes: As Per HPI Ears: As Per HPI - Cardiovascular Cardiovascular: As Per HPI - Respiratory Respiratory: As Per HPI - Gastrointestinal Gastrointestinal: As Per HPI - Genitourinary Genitourinary: As Per HPI - Reproductive: Male Reproductive:Male: As Per HPI - Musculoskeletal Musculoskeletal: As Per HPI - Integumentary Integumentary: As Per HPI - Neurological Neurological: As Per HPI - Psychiatric Psychiatric: As Per HPI - Endocrine Endocrine: As Per HPI - Hematologic/Lymphatic Hematologic: As Per HPI Past Patient History - Past Medical History & Family History Past Medical History?: Yes - Past Social History Smoking Status: Former Smoker - PULMONARY Hx Bronchitis: Yes - HEMATOLOGICAL/ONCOLOGICAL Hx Human Immunodeficiency Virus (HIV): No - MUSCULOSKELETAL/RHEUMATOLOGICAL Hx Falls: No - PSYCHIATRIC Hx Substance Use: No - SURGICAL HISTORY Hx Cholecystectomy: Yes - ANESTHESIA Hx Anesthesia: Yes Hx Anesthesia Reactions: No Hx Malignant Hyperthermia: No Meds Allergies/Adverse Reactions: Allergies Allergy/AdvReac Type Severity Reaction Status Date / Time No Known Allergies Allergy Verified 06/19/18 06:18 - Medications Medications: Current Medications Aspirin (Ecotrin) 81 mg PO DAILY [facility] Carvedilol (Coreg) 3.125 mg PO Q12 [facility] Clopidogrel Bisulfate (Plavix) 75 mg PO DAILY [facility] Furosemide (Lasix) 40 mg IVP BID [facility] Home Med (Fluticasone/Vilanterol [Breo Ellipta 100-25 Mcg Inh]) 1 each IH DAILY [place] Lisinopril (Zestril) 5 mg PO DAILY [place] Physical Exam - Constitutional Appears: Well - Head Exam Head Exam: ATRAUMATIC, NORMAL INSPECTION, NORMOCEPHALIC - Eye Exam Eye Exam: EOMI, Normal appearance, PERRL Pupil Exam: NORMAL ACCOMODATION, PERRL - ENT Exam ENT Exam: Mucous Membranes Moist, Normal Exam - Neck Exam Neck exam: Positive for: Normal Inspection - Respiratory Exam Respiratory Exam: Clear to Auscultation Bilateral, Rales, NORMAL BREATHING PATTERN - Cardiovascular Exam Cardiovascular Exam: REGULAR RHYTHM, +S1, +S2, +S4, Systolic Murmur - GI/Abdominal Exam GI & Abdominal Exam: Normal Bowel Sounds, Soft. absent: Tenderness - Extremities Exam Extremities exam: Positive for: normal inspection - Back Exam Back exam: NORMAL INSPECTION - Neurological Exam Neurological exam: Alert, CN II-XII Intact, Normal Gait, Oriented x3, Reflexes Normal - Psychiatric Exam Psychiatric exam: Normal Affect, Normal Mood - Skin Skin Exam: Dry, Intact, Normal Color, Warm Results - Vital Signs Recent Vital Signs: Last Vital Signs Temp 98.2 F 07/03/18 14:45 Pulse 102 H 07/03/18 14:45 Resp 16 07/03/18 14:45 BP 159/74 H 07/03/18 14:45 Pulse Ox 96 07/03/18 14:45 - Labs Result Diagrams: 07/04/18 05:20 07/03/18 03:20 Labs: Laboratory Results - last 24 hr 07/03/18 07/03/18 03:20 03:20 WBC 9.8 RBC 4.24 L Hgb 12.5 Hct 36.8 MCV 86.8 MCH 29.6 MCHC 34.1 RDW 14.2 Plt Count 275 MPV 8.1 Neut % (Auto) 66.1 Lymph % (Auto) 23.3 [place] % (Auto) 6.4 Eos % (Auto) 3.2 Baso % (Auto) 1.0 Neut # (Auto) 6.5 Lymph # (Auto) 2.3 [place] # (Auto) 0.6 Eos # (Auto) 0.3 Baso # (Auto) 0.1 Sodium 138 Potassium 4.1 Chloride 106 Carbon Dioxide 23 Anion Gap 13 BUN 13 Creatinine 0.8 Est GFR ( Amer) > 60 Est GFR (Non-Af Amer) > 60 Random Glucose 99 Calcium 8.4 Total Bilirubin 0.7 AST 39 ALT 47 Alkaline Phosphatase 58 Troponin I 0.0520 NT-Pro-B Natriuret Pep 4260 H Total Protein 7.0 Albumin 4.0 Globulin 3.0 Albumin/Globulin Ratio 1.3 Assessment & Plan (1) New onset of congestive heart failure Assessment and Plan: plan for CHCx via brachail vein/radial artery approach gdmt for CHF ( bb,arb,aldactone) Status: Acute (2) Chest pain Status: Acute (3) Shortness of breath Status: Acute
--- NOTE | 2018-07-04 01:44 | HP ---
HISTORY OF PRESENT ILLNESS: This is a 53-year-old male who was recently diagnosed with congestive heart failure. The patient presented to the emergency room with acute shortness of breath that woke the patient up from sleep in shot lighter hour today. The patient was evaluated in the emergency room, and he was found to have pulmonary edema. The patient was given diuretics and nitrates and symptoms improved. During last admission, the patient was offered cardiac catheterization, which he deferred. The patient denied to have any chest pain or palpitation. The patient admits that he is compliant with his medications including LYNNE inhibitor, beta malick, and diuretics as well as aspirin. REVIEW OF SYSTEMS: Other review of systems is negative. ALLERGIES: NO KNOWN ALLERGIES. MEDICATIONS: Medications were reviewed and ordered as per MAR. SOCIAL HISTORY: Denied smoking, ETOH, or substance abuse. FAMILY HISTORY: Noncontributory. PAST MEDICAL HISTORY: Hypertension and allergic rhinitis. PHYSICAL EXAMINATION: GENERAL: The patient was in bed, not in cardiopulmonary distress. VITAL SIGNS: With a blood pressure of 137/66, temperature 98, respiratory rate 16, and pulse 98. HEENT: Pupils are equal and reactive to light. Normal-appearing mucosa of the conjunctivae, oropharynx, and nasal membrane mucosa. NECK: Supple. No JVD. No carotid bruits. No lymph nodes. No thyromegaly. CHEST AND LUNGS: Bilateral symmetrical expansion. Good air exchange. No rales. No rhonchi. CARDIOVASCULAR SYSTEM: PMI not localized. S1 and S2 with a diastolic third heart sound likely S3. ABDOMEN: Normoactive bowel sounds. No tenderness. No organomegaly. No masses. EXTREMITIES: No cyanosis, no clubbing, and no edema. CENTRAL NERVOUS SYSTEM: Alert, awake, and oriented x3. No neurological deficits could be appreciated. ASSESSMENT: 1. Exacerbation of systolic congestive heart failure with known ejection fraction of 20%. 2. History of hypertension. PLAN: Continue diuretics. Cardiology consult and follow recommendations. Reviewed the patient's home medications. Discussed the patient's condition with Dr. Bryant who will schedule the patient for cardiac catheterization. Ezekiel Jimenez MD [facility] # [id number]
[2018-07-04 06:40] LABS: HEMOGLOBIN 12.5 g/dL (12.0-18.0); MEAN CELL VOLUME 87.7 fl (80.0-94.0); MEAN CORPUSCULAR HEMOGLOBIN 29.5 pg (27.0-31.0); MEAN CORPUSCULAR HGB CONC 33.6 g/dL (33.0-37.0); RBC 4.23 Mil/uL (4.40-5.90); RED CELL DISTRIBUTION WIDTH 14.2 % (11.5-14.5); WHITE BLOOD COUNT 11.5 K/uL (4.8-10.8)
[2018-07-04] MEDS ORDERED: FLUTICASONE IH SCH (09:00)
[2018-07-04] MEDS ORDERED: VILANTEROL IH SCH (09:00)
[2018-07-04] MEDS: FLUTICASONE PROPION/SALMETEROL 55-14 INHALER INH SCH ×2 (11:54→21:53)
[2018-07-04] MEDS ORDERED: Pneumococcal 23-Valent Vaccine IM ONE (14:07)
--- NOTE | 2018-07-04 14:43 | CP.PCM.CON ---
History of Present Illness - History of Present Illness History of Present Illness: 53 year old male with a history of longstanding "asthma" and recently diagnosed dilated, non-ischemic cardiomyopathy (echo 06/19/18 with LVEF 25%) presenting to [facility] with heart failure exacerbation. The patient notes recurrent e pisodes of shortness of breath over the last several months. He had been diagnosed with bronchospastic airway disease, but recent echo demonstrates severe LV dysfunction. He has responded well to diuretics, and was started on oral betablockers and afterload reduction. historically he denies lighteadedness, dizziness, syncope. He has persistent cough. Edema is improved. EKG with sinus/sinus tachycardia with 1:1 antegrade conduction and narrow QRS. Tele with occasional VPC bigeminy, trigeminy. No AF noted. Cath this admission with normal coronaries Review of Systems - Review of Systems All systems: reviewed and no additional remarkable complaints except (what is noted in HPI) Past Patient History - Past Medical History & Family History Past Medical History?: Yes - Past Social History Smoking Status: Former Smoker Alcohol: Social - PULMONARY Hx Bronchitis: Yes - NEUROLOGICAL Hx Neurological Disorder: No - HEENT Hx HEENT Problems: No - RENAL Hx Chronic Kidney Disease: No - ENDOCRINE/METABOLIC Hx Endocrine Disorders: No - HEMATOLOGICAL/ONCOLOGICAL Hx Human Immunodeficiency Virus (HIV): No - INTEGUMENTARY Hx Dermatological Problems: No - MUSCULOSKELETAL/RHEUMATOLOGICAL Hx Falls: No - GENITOURINARY/GYNECOLOGICAL Hx Genitourinary Disorders: No - PSYCHIATRIC Hx Substance Use: No - SURGICAL HISTORY Hx Cholecystectomy: Yes - ANESTHESIA Hx Anesthesia: Yes Hx Anesthesia Reactions: No Hx Malignant Hyperthermia: No Meds Allergies/Adverse Reactions: Allergies Allergy/AdvReac Type Severity Reaction Status Date / Time No Known Allergies Allergy Verified 06/19/18 06:18 - Medications Medications: Current Medications Aspirin (Ecotrin) 81 mg PO DAILY [facility] Last Admin: 07/04/18 10:28 Dose: 81 mg Carvedilol (Coreg) 3.125 mg PO Q12 [facility] Last Admin: 07/04/18 10:39 Dose: 3.125 mg Clopidogrel Bisulfate (Plavix) 75 mg PO DAILY [facility] Last Admin: 07/04/18 10:29 Dose: 75 mg Furosemide (Lasix) 40 mg IVP BID [facility] Last Admin: 07/04/18 10:40 Dose: 40 mg Lisinopril (Zestril) 5 mg PO DAILY [facility] Last Admin: 07/04/18 10:41 Dose: 5 mg Physical Exam - Constitutional Appears: Well - Head Exam Head Exam: ATRAUMATIC - Eye Exam Eye Exam: Normal appearance - Respiratory Exam Respiratory Exam: Clear to Auscultation Bilateral, NORMAL BREATHING PATTERN - Cardiovascular Exam Cardiovascular Exam: Tachycardia Additional comments: regular, tachycardic - GI/Abdominal Exam GI & Abdominal Exam: Normal Bowel Sounds - Extremities Exam Extremities exam: Positive for: normal inspection - Back Exam Back exam: NORMAL INSPECTION - Neurological Exam Neurological exam: Alert, Oriented x3 - Skin Skin Exam: Normal Color, Warm Results - Vital Signs Recent Vital Signs: Last Vital Signs Temp 97.7 F 07/04/18 12:11 Pulse 100 H 07/04/18 12:11 Resp 21 07/04/18 12:11 BP 127/76 07/04/18 12:11 Pulse Ox 95 07/04/18 12:11 - Labs Result Diagrams: 07/04/18 05:20 07/03/18 03:20 Labs: Laboratory Results - last 24 hr 07/03/18 07/04/18 07/04/18 15:18 05:20 05:20 WBC 11.5 H RBC 4.23 L Hgb 12.5 Hct 37.1 MCV 87.7 MCH 29.5 MCHC 33.6 RDW 14.2 Plt Count 270 Troponin I 0.0230 0.0510 - EKG Data EKG Interpreted by: Myself Assessment & Plan - Assessment and Plan (Free Text) Assessment: 53 year old male with "new" onset dilated, non ischemic cardiomyopathy. He has class II HF, and is now starting guideline directed medication therapy. I discussed at length with the patient and spouse regarding the potential for ventricular arrhythmia, which could be life threatening. I discussed the role of optimal medical therapy for at least 3 months, and that he should repeat an echo end of August/early September 2018. In the interim, I also discussed the potential role of Lifevest wearable defibrillator. He is interested in this technology, and I will provide information to determine his candidacy. Titration of medications my cardiology as outpatient and close follow up.
--- NOTE | 2018-07-04 16:47 | CP.PCM.PN ---
Subjective - Date & Time of Evaluation Date of Evaluation: 07/04/18 Time of Evaluation: 16:45 - Subjective Subjective: s/p complete heart cath showing non-ischemic CMP with EF of 20-25% feeling better post diuretic therapy Objective - Vital Signs/Intake and Output Vital Signs (last 24 hours): Temp Pulse Resp BP Pulse Ox 97.4 F L 106 H 17 100/79 96 07/04/18 16:00 07/04/18 16:00 07/04/18 16:00 07/04/18 16:00 07/04/18 16:00 - Medications Medications: Current Medications Aspirin (Ecotrin) 81 mg PO DAILY [facility] Last Admin: 07/04/18 10:28 Dose: 81 mg Carvedilol (Coreg) 3.125 mg PO Q12 [facility] Last Admin: 07/04/18 10:39 Dose: 3.125 mg Clopidogrel Bisulfate (Plavix) 75 mg PO DAILY [facility] Last Admin: 07/04/18 10:29 Dose: 75 mg Furosemide (Lasix) 40 mg IVP BID [facility] Last Admin: 07/04/18 10:40 Dose: 40 mg Lisinopril (Zestril) 5 mg PO DAILY [facility] Last Admin: 07/04/18 10:41 Dose: 5 mg - Labs Labs: 07/04/18 05:20 07/03/18 03:20 - Constitutional Appears: Well - Head Exam Head Exam: ATRAUMATIC, NORMAL INSPECTION, NORMOCEPHALIC - Eye Exam Eye Exam: EOMI, Normal appearance, PERRL Pupil Exam: NORMAL ACCOMODATION, PERRL - ENT Exam ENT Exam: Mucous Membranes Moist, Normal Exam - Neck Exam Neck Exam: Full ROM, Normal Inspection. absent: Lymphadenopathy - Respiratory Exam Respiratory Exam: Clear to Ausculation Bilateral, Rales, NORMAL BREATHING PATTERN - Cardiovascular Exam Cardiovascular Exam: REGULAR RHYTHM, +S1, +S2, Murmur - GI/Abdominal Exam GI & Abdominal Exam: Soft, Normal Bowel Sounds. absent: Tenderness - Extremities Exam Extremities Exam: Full ROM, Normal Capillary Refill, Normal Inspection. absent: Joint Swelling, Pedal Edema - Back Exam Back Exam: NORMAL INSPECTION - Neurological Exam Neurological Exam: Alert, Awake, CN II-XII Intact, Normal Gait, Oriented x3 - Psychiatric Exam Psychiatric exam: Normal Affect, Normal Mood - Skin Skin Exam: Dry, Intact, Normal Color, Warm Assessment and Plan (1) New onset of congestive heart failure Assessment & Plan: cont coreg lisinopril cont lasix add aldactone 25mg po daily EP eval lifevest Status: Acute (2) Chest pain Assessment & Plan: dc plavix cont asa Status: Acute (3) Shortness of breath Status: Acute
[2018-07-04] MEDS: guaiFENesin 100 mg/5 ml Syrup UD PO PRN (21:49)
[2018-07-05] MEDS ORDERED: Benzocaine/Menthol (Cepacol) Lozenge PO PRN (01:04)
[2018-07-05] MEDS: guaiFENesin 100 mg/5 ml Syrup UD PO PRN (01:15)
--- NOTE | 2018-07-05 01:41 | PN ---
DATE: 07/04/2018 SUBJECTIVE: The patient is seen today, 07/04/2018. He is less short of breath, status post cardiac catheterization that showed minimal coronary artery disease with dilated cardiomyopathy and ejection fraction in the range of 20%. PHYSICAL EXAMINATION: VITAL SIGNS: Blood pressure is 98/77, temperature 97.4, respiratory rate 20, and pulse 90. HEENT: Pupils equal, reactive to light. Normal-appearing mucosa of the conjunctivae, oropharynx, and nasal membrane mucosa. NECK: Supple. No JVD. No carotid bruit. No lymph node. No thyromegaly. CHEST AND LUNGS: Bilateral symmetrical expansion. Good air exchange. No rales, no rhonchi. CARDIOVASCULAR SYSTEM: PMI not localized. S1, S2. No additional sounds. ABDOMEN: Normoactive bowel sounds. No tenderness. No organomegaly. No masses. EXTREMITIES: No cyanosis, no clubbing, no edema. CENTRAL NERVOUS SYSTEM: Alert, awake, oriented x2. No neurological deficit could be appreciated. ASSESSMENT: 1. Dilated cardiomyopathy. 2. Exacerbation of systolic heart failure. 3. Hypertension. PLAN: Continue current anti-failure regimens and we will increase carvedilol to 6.25 mg and titrate to maintain a heart rate and function of the patient. Follow recommendations of the ski edge painter regarding the best choice external defibrillator. We will increase carvedilol to 6.25 mg twice a day. Ezekiel Jimenez MD
[2018-07-05] MEDS: guaiFENesin-DM 600-30 mg ER Tab PO SCH ×2 (02:32→08:55)
[2018-07-05 05:01] LABS: HEMOGLOBIN 12.9 g/dL (12.0-18.0); MEAN CELL VOLUME 87.9 fl (80.0-94.0); MEAN CORPUSCULAR HEMOGLOBIN 29.5 pg (27.0-31.0); MEAN CORPUSCULAR HGB CONC 33.5 g/dL (33.0-37.0); RBC 4.38 Mil/uL (4.40-5.90); RED CELL DISTRIBUTION WIDTH 14.3 % (11.5-14.5); WHITE BLOOD COUNT 11.1 K/uL (4.8-10.8)
[2018-07-05 05:34] LABS: ALB/GLOB RATIO 1.4 (1.0-2.1); ALBUMIN 3.9 g/dL (3.5-5.0); ALT/SGPT 47 U/L (21-72); AST/SGOT 28 U/L (17-59); BLOOD UREA NITROGEN 19 mg/dl (9-20); CALCIUM 8.5 mg/dL (8.4-10.2); GFR NON-AFRICAN AMERICAN > 60
[2018-07-05] MEDS ORDERED: Potassium Chloride 20 mEq ER Tab PO ONE (05:54)
[2018-07-05] MEDS: FLUTICASONE PROPION/SALMETEROL 55-14 INHALER INH SCH ×2 (08:56→08:57)
--- NOTE | 2018-07-05 11:41 | CP.PCM.PN ---
Subjective - Date & Time of Evaluation Date of Evaluation: 07/05/18 Time of Evaluation: 11:38 - Subjective Subjective: feeling better Objective - Vital Signs/Intake and Output Vital Signs (last 24 hours): Temp Pulse Resp BP Pulse Ox 98.5 F 98 H 17 115/68 92 L 07/05/18 08:26 07/05/18 11:07 07/05/18 08:26 07/05/18 11:07 07/05/18 05:00 - Medications Medications: Current Medications Aspirin (Ecotrin) 81 mg PO DAILY [facility] Last Admin: 07/05/18 08:54 Dose: 81 mg Furosemide (Lasix) 40 mg IVP BID [facility] Last Admin: 07/05/18 09:46 Dose: 40 mg Guaifenesin/Dextromethorphan (Mucinex-Dm 600-30 Mg) 1 tab PO BID [facility] Last Admin: 07/05/18 08:55 Dose: 1 tab Lisinopril (Zestril) 5 mg PO DAILY@1400 [place] Metoprolol Tartrate (Lopressor) 50 mg PO Q12 [facility] Last Admin: 07/05/18 11:07 Dose: 50 mg - Labs Labs: 07/05/18 04:56 07/05/18 04:56 - Constitutional Appears: Well - Head Exam Head Exam: ATRAUMATIC, NORMAL INSPECTION, NORMOCEPHALIC - Eye Exam Eye Exam: EOMI, Normal appearance, PERRL Pupil Exam: NORMAL ACCOMODATION, PERRL - ENT Exam ENT Exam: Mucous Membranes Moist, Normal Exam - Neck Exam Neck Exam: Full ROM, Normal Inspection. absent: Lymphadenopathy - Respiratory Exam Respiratory Exam: Clear to Ausculation Bilateral, NORMAL BREATHING PATTERN - Cardiovascular Exam Cardiovascular Exam: REGULAR RHYTHM, RRR, +S1, +S2, Murmur - GI/Abdominal Exam GI & Abdominal Exam: Soft, Normal Bowel Sounds. absent: Tenderness - Extremities Exam Extremities Exam: Full ROM, Normal Capillary Refill, Normal Inspection. absent: Joint Swelling, Pedal Edema - Back Exam Back Exam: NORMAL INSPECTION - Neurological Exam Neurological Exam: Alert, Awake, CN II-XII Intact, Normal Gait, Oriented x3 - Psychiatric Exam Psychiatric exam: Normal Affect, Normal Mood - Skin Skin Exam: Dry, Intact, Normal Color, Warm Assessment and Plan (1) New onset of congestive heart failure Assessment & Plan: sx improving bb changed from coreg to metoprolol cont acei add aldactone 25mg po daily Status: Acute (2) Chest pain Status: Acute (3) Shortness of breath Status: Acute
--- NOTE | 2018-07-05 12:36 | PQF ---
PROVIDER RESPONSE TEXT: K supplement as pt. Is on diuretic REVIEWER QUERY TEXT: Medication Correlation for Diagnosis Your help is needed in capturing diagnoses for the corresponding medication: ordered. Please clarify in the documentation diagnoses for the following medication(s). Medications:Potassium Chloride 20 meq PO once K:4.1->3.4 The patient's Clinical Indicators include: -- Query created by: Jackie Stone on 07/05/2018 8:45 AM Electronically signed by: Ezekiel Jimenez MD 07/05/2018 12:33 PM
[2018-07-05 12:44] VITALS: RESP 18
[2018-07-05 16:28] VITALS: BP 111/71; PULSE 95; TEMP 98.1; O2SAT 94
--- NOTE | 2018-07-07 05:52 | DS ---
REASON FOR ADMISSION: This is a 53-year-old male with congestive heart failure who was admitted for exacerbation of the same. COURSE OF HOSPITALIZATION: The patient was admitted to telemetry floor and after he was diuresed in the emergency room. The patient had a cardiology consultation done by Dr. Bryant. He underwent cardiac catheterization at [facility]. The patient's cardiac catheterization revealed dilated cardiomyopathy with nonobstructive coronary artery disease. The patient was started on metoprolol, losartan and spironolactone, and heart rate was better controlled. The patient had an elective surgery consult with Dr. Granados, and he was offered that he refused. The patient was never on optimum anti-failure medication, and he was to follow up with Cardiology as well as primary care to monitor electrolytes. FINAL DIAGNOSES: Dilated cardiomyopathy, exacerbation of systolic congestive heart failure, acute exacerbation of congestive heart failure. Ezekiel Jimenez MD
== END 2018-07-05 18:09 | disposition home or self-care (01) | DRG 287 ==
LOC: H.ER 01:24 → H.ERHOLD 06:06 → H.ICU/CCU 07-04 00:39 → OBSVTOIN 07-04 17:02
PROVIDERS: ADMIT Internal Medicine; ATTEND Internal Medicine
PROC: 4A023N6 Measurement of Cardiac Sampling and Pressure, Right Heart, Percutaneous Approach (ICD-10-PCS; principal; 2018-07-03)
PROC: B206YZZ Plain Radiography of Right and Left Heart using Other Contrast (ICD-10-PCS; 2018-07-03)
DX: I11.0 Hypertensive heart disease with heart failure (principal); I50.23 Acute on chronic systolic (congestive) heart failure; I42.0 Dilated cardiomyopathy; E87.6 Hypokalemia; I25.10 Atherosclerotic heart disease of native coronary artery without angina pectoris; J44.9 Chronic obstructive pulmonary disease, unspecified; Z79.82 Long term (current) use of aspirin; Z87.891 Personal history of nicotine dependence